=== PATIENT | female | born 1990 | race Caucasian/White ===

== ENCOUNTER 2018-02-16 15:49 | Emergency (ER) | payer SELFPAY ==
[2018-02-16 15:50] VITALS: BP 141/90; PULSE 102; RESP 16; TEMP 36.7; O2SAT 98; BMI 25.0
--- NOTE | 2018-02-16 16:49 | ED.DCSUM_ITS ---
- ER Visit Summary Date of Service: 02/16/18 Chief Complaint: Chest pain History of Present Illness: The patient is a 27 F with no primary care physician. She reports that she has pain lower left chest that began 5 days ago. Is a sharp pain that is worsened by movement of her torso, touching, or touching it. Senna 10 hours and 7-10 currently. She taken NSAIDs and Tylenol without relief. She does have a family history of DVT. No personal history of DVT. No recent travel. She is not on control pills. She denies any ankle swelling or calf pain. Physical Examination: Vitals: Stable. Afebrile. General: Well-nourished and well-developed. Head: Normocephalic atraumatic. Neck: Supple, no lymphadenopathy. No JVD. Nontender. Cardiovascular: Regular rate and rhythm. No murmurs. Respiratory: No respiratory distress. Clear to auscultation bilaterally. Moderate tenderness palpation over the lower chest on the left that does reproduce her pain. Abdominal: Soft, nontender, nondistended, normal bowel sounds. No guarding, rebound, or peritoneal signs. Back: Nontender. Extremities: Nontender, no edema. Skin: Normal color, no rash. Neurologic: Alert and oriented ?3. Cranial nerves II through XII are intact. Normal strength and sensation. Psych: Normal affect. Test Results: Chest x-ray is normal. Emergency Department Course and Treatment: I did discuss the possibility of a PE with the patient. I feel this is very unlikely. Her pain is reproducible. However, her heart rate was 102. She does not want to have labs obtained. I feel it is a reasonable course of action. Treatment Plan: Patient will be discharged with instructions to continue Tylenol and ibuprofen for pain. Follow-up with Dr. Ma in 3-5 days not improving. Return to the emergency department for any worsening symptoms. Disposition: To home in improved and stable condition. Impression: 1. Musculoskeletal chest pain. This note was generated with [employer] dictation software. It may contain incorrect words, spelling, and punctuation that were not noted in review of the chart prior to signing ED Disposition - Plan for ED Patient: Disposition: Home or Assisted Living Chief Complaint: Chest Other Instructions: ED Strain Chest Wall Referrals: Keysha Ma DO [STAFF PHYSICIAN] - 3-5 Days if not improving
== END 2018-02-16 17:08 | disposition home or self-care (01) ==
LOC: ED 16:57
PROVIDERS: Emergency Provider Emergency Medicine
DX: R07.89 Other chest pain (principal); R11.0 Nausea; R06.00 Dyspnea, unspecified; F31.9 Bipolar disorder, unspecified; F41.9 Anxiety disorder, unspecified; Z72.0 Tobacco use; Z79.899 Other long term (current) drug therapy
CPT/HCPCS: 71046; 99282

== ENCOUNTER 2018-07-17 13:31 | Emergency (ER) | payer SELFPAY ==
[2018-07-17 13:32] VITALS: BP 135/86; PULSE 101; RESP 18; TEMP 35.9; O2SAT 100; BMI 25.8
--- NOTE | 2018-07-17 14:15 | ED.VISSUMM ---
- ER Visit Summary Date of Service: 07/17/18 Chief Complaint: Sinus symptoms, ear pain History of Present Illness: The patient is a 27 F who is otherwise healthy presents with symptoms of sinus infection. Patient states she has had the symptoms for the past 3 days. She states initially started with some mild nasal drainage and facial fullness. Over the past 2 days, it is worsened. She had more pain in her ears, left greater than right. She denies any fevers or chills. She has had a scant nonproductive cough. She has tried Mucinex with little improvement. She does smoke. Physical Examination: Exam is relatively unremarkable. Left TM is erythematous with distortion of landmarks. Right TM has no erythema but there is bulging. No mastoid tenderness bilaterally. Turbinates are congested but there is no purulent drainage. Oropharynx is widely patent. Heart is regular rate and rhythm. Lungs are clear without wheezes or rhonchi. Test Results: [] Emergency Department Course and Treatment: Clinically, the patient's symptoms do seem consistent most with a URI, but she does have evidence of an acute otitis. I am going to treat her with amoxicillin. I do not suspect a dangerous process. She is not meningitic. I do feel that she is safe for outpatient therapy. She was counseled on concerning symptoms and reasons to return. Treatment Plan: [] Disposition: Discharge Impression: 1. Viral URI 2. Left otitis media This note was generated with [employer] dictation software. It may contain incorrect words, spelling, and punctuation that were not noted in review of the chart prior to signing ED Disposition - Plan for ED Patient: Instructions: ED Upper Resp Infec Abx Tx Prescriptions: Amoxicillin 500 mg PO TID #30 tab Referrals: Care Physician,No Primary [Primary Care Provider] -
== END 2018-07-17 14:39 | disposition home or self-care (01) ==
LOC: ED 14:24
PROVIDERS: Emergency Provider Emergency Medicine
DX: J06.9 Acute upper respiratory infection, unspecified (principal); H66.92 Otitis media, unspecified, left ear; F17.200 Nicotine dependence, unspecified, uncomplicated; F31.9 Bipolar disorder, unspecified; Z79.899 Other long term (current) drug therapy
CPT/HCPCS: 99282

== ENCOUNTER 2020-05-26 02:40 | Emergency (ER) | payer SELFPAY ==
--- NOTE | 2020-05-26 02:41 | ED.VIS.GEN ---
History of Present Illness Chief Complaint: Bite Informant: Patient Onset: Today Context: Sudden Onset Timing: Continuous Current Severity: Moderate Maximum Severity: Moderate Narrative: The patient is a 29-year-old female is right-hand dominant the presents to the emergency department cat bite on her right hand. Patient states she had a stray cat that she was going to take the [employer]. It had got under her porch and was wet. She states she went under to try to reach for it. The cat bit her hand. This happened less than an hour prior to arrival. Her tetanus is up-to-date. She is otherwise been in her normal state of health. She denies other injury. Prior similar symptoms: No Recent Illness/Hospitalization: No Past Medical History - Allergies and Home Meds Allergies/Adverse Reactions: Allergies cyclobenzaprine HCl [From Flexeril] Allergy (Verified 05/26/20 02:40) Swelling tramadol Allergy (Verified 05/26/20 02:40) Swelling Primary Care Physician: Care Physician,No Primary [Primary Care Provider] - Prior records reviewed: Yes Past Medical History: None Surgical History: no surgical history Smoking Status: Current every day smoker Review of Systems General: Denies: Chills, Fever, Sweats Eyes: Denies: Visual changes - bilaterally, Diplopia ENT: Denies: Rhinorrhea, Sore throat Cardiovascular: Denies: Chest pain, Palpitations Respiratory: Denies: Dyspnea, Cough, Dyspnea on exertion Gastrointestinal: Denies: Abdominal pain, Nausea, Vomiting, Diarrhea, Melena, Hematochezia Genitourinary: Denies: Dysuria, Hematuria, Frequency Musculoskeletal: Denies: Back pain, Extremity Pain Skin: Denies: Rash, Wounds Neurological: Denies: Headache, Weakness, Numbness Physical Exam Inital Vital Signs reviewed: Yes General: Well nourished, Well developed, No Acute Distress Head: Normocephalic, Atraumatic Eyes: Perrl, EOMI ENT: Moist mucous membranes, No rhinorrhea Neck: Supple, Nontender Cardiovascular: Regular rate, Regular rhythm, No murmurs Respiratory: No distress, CTA bilaterally, Chest nontender Abdomen: Soft, Nontender, Nondistended, Normal bowel sounds Back: Nontender, Normal Inspection Extremities: No edema, Tenderness - Patient does have a 1 cm vertically oriented laceration on the palmar aspect of the third distal phalanges. There is a small puncture on the dorsum. There is minimal active bleeding. Her cap refill is less than 2 seconds. Skin: Normal color, No rash Neurological: Alert, Oriented x3, Cranial nerves II-XII grossly intact, Normal Strength, Normal Sensation Psychological: Normal affect, Normal Mood Diagnostic/Tx/Re-eval - Medical Decision Making Patient presents with cat bite. This does involve the hand. I do not feel this would benefit from primary closure especially given the significant risk of infection. The patient's wounds were irrigated, cleansed, and dressed. She is given a short course of analgesics and antibiotics. She is comfortable with this plan of care and will be discharged home. Impression 1. Cat bite right hand ED Disposition - Plan for ED Patient: Instructions: ED Cat Bite Prescriptions: Amox/Clavulanate Tablet [Augmentin Tablet] 875 mg PO Q12H #14 tab Prescription Printed Hydrocodone Bitart/Apap 5-325 [[place] 5MG-325MG] 1 tab PO Q6H PRN PRN 3 Days #8 tab PRN Reason: Pain Prescription Printed Referrals: Care Physician,No Primary [Primary Care Provider] - 2 Days for wound check
[2020-05-26 02:42] VITALS: BP 127/89; PULSE 106; RESP 17; TEMP 36; O2SAT 99; BMI 26.4
[2020-05-26] MEDS: HYDROcodone Bitartrate/Apap 5/325 Tablet PO (02:49)
[2020-05-26] MEDS: Amox/Clavulanate 875 MG Tablet PO (02:49)
== END 2020-05-26 03:08 | disposition home or self-care (01) ==
LOC: ED 03:03
PROVIDERS: Emergency Provider Emergency Medicine
DX: S61.252A Open bite of right middle finger without damage to nail, initial encounter (principal); S61.232A Puncture wound without foreign body of right middle finger without damage to nail, initial encounter; W55.01XA Bitten by cat, initial encounter; Y93.9 Activity, unspecified; Y92.9 Unspecified place or not applicable; Y99.9 Unspecified external cause status; F17.200 Nicotine dependence, unspecified, uncomplicated; Z79.899 Other long term (current) drug therapy
CPT/HCPCS: 99283

== ENCOUNTER 2020-06-26 15:21 | Emergency (ER) | payer SELFPAY ==
[2020-06-26 15:22] VITALS: BP 167/110; PULSE 75; RESP 16; TEMP 35.6; O2SAT 100; BMI 25.8
[2020-06-26 16:09] VITALS: BP 167/110; PULSE 75; RESP 16; TEMP 35.6; O2SAT 100
--- NOTE | 2020-06-26 16:15 | ED.VIS.GEN ---
History of Present Illness Chief Complaint: Dental Informant: Patient Narrative: Patient is a 29-year-old female with a past medical history of depression anxiety who presents to the emergency department for dental pain. She states that she has had issues with this for over a year. She feels like occasionally gets pus out of the left lower molar region. She has not seen a dentist as she does not have insurance. She has been taking Tylenol and ibuprofen for this. She feels like it has been getting worse recently. She denies any issues with throat pain or swallowing. No chest pain or shortness of breath. No fevers or chills. She does have hot and cold sensitivities to the teeth when eating. She does have a history of her wisdom teeth being taken out. She denies any chance of being . Past Medical History - Allergies and Home Meds Allergies/Adverse Reactions: Allergies cyclobenzaprine HCl [From Flexeril] Allergy (Verified 06/26/20 15:24) Swelling tramadol Allergy (Verified 06/26/20 15:24) Swelling Primary Care Physician: Care Physician,No Primary [Primary Care Provider] - Prior records reviewed: Yes Past Medical History: - - Anxiety/depression Surgical History: no surgical history Smoking Status: Current every day smoker Review of Systems All systems negative except as indicated General: Denies: Chills, Fever, Sweats Eyes: Denies: Visual changes - bilaterally ENT: Reports: - - Dental pain. Denies: Bilateral ear pain, Rhinorrhea, Sore throat Cardiovascular: Denies: Chest pain, Palpitations Respiratory: Denies: Dyspnea, Cough, Dyspnea on exertion Gastrointestinal: Denies: Abdominal pain, Nausea, Vomiting Musculoskeletal: Denies: Back pain, Extremity Pain Skin: Denies: Rash, Wounds Neurological: Denies: Headache, Weakness, Numbness Allergy: Denies: Swelling of the mouth, Swelling of the tongue Physical Exam Vital Signs/Narrative: Vital Signs Temp Pulse Resp BP Pulse Ox 06/26/20 16:09 96.1 F L 75 16 167/110 H 100 06/26/20 15:22 96.1 F L 75 16 167/110 H 100 Inital Vital Signs reviewed: Yes General: Well nourished, Well developed, No Acute Distress Head: Normocephalic, Atraumatic Eyes: Perrl, EOMI ENT: Moist mucous membranes, No rhinorrhea, - - Multiple dental caries present. No appreciable dental abscess. Uvula midline. No lesions present. Neck: Supple, Nontender, No lymphadenopathy Cardiovascular: Regular rate, Regular rhythm, No murmurs Respiratory: No distress, CTA bilaterally, Chest nontender Abdomen: Nondistended Extremities: Nontender, No edema Skin: Normal color, No rash Neurological: Alert, Oriented x3, Cranial nerves II-XII grossly intact Psychological: Normal affect, Normal Mood Diagnostic/Tx/Re-eval - Medical Decision Making Patient presents to the emergency department for dental pain. Is been a chronic issue for her. I do suspect a dental infection with the hot and cold sensitivities with pain. We will write a prescription for penicillin. She will be given a dose of IM Toradol here in the ED. I did give her a list of dentists in the area for which she can follow-up with. She needs to have close follow-up with them. Warning signs and symptoms which to return to the ED are reviewed including significant facial swelling, issues with swallowing or fever/chills. She understands and is agreeable with plan. She is discharged home in stable condition. All questions were answered. ED Disposition - Plan for ED Patient: Disposition: Home or Assisted Living Diagnosis: Pain, dental Instructions: Dental Abscess Referrals: Care Physician,No Primary [Primary Care Provider] - Additional Instructions: Please follow-up with dentist from provided list as soon as possible.
[2020-06-26] MEDS: Penicillin Vk 250 MG Tablet 500 MG PO (16:29)
[2020-06-26] MEDS: Ketorolac 30 MG/ML Syringe IM (16:29)
[2020-06-26 16:30] VITALS: BP 129/66; PULSE 84; RESP 16; O2SAT 97
== END 2020-06-26 16:51 | disposition home or self-care (01) ==
LOC: ED 16:29
PROVIDERS: Emergency Provider Emergency Medicine
DX: K08.89 Other specified disorders of teeth and supporting structures (principal); G89.29 Other chronic pain; K02.9 Dental caries, unspecified; F32.9 Major depressive disorder, single episode, unspecified; F41.9 Anxiety disorder, unspecified; F17.200 Nicotine dependence, unspecified, uncomplicated; Z79.899 Other long term (current) drug therapy
CPT/HCPCS: 96372; 99283

== ENCOUNTER 2021-03-01 09:07 | Emergency (ER) | payer MEDICARE, SELFPAY ==
[2021-03-01 09:08] VITALS: BP 152/110; PULSE 94; RESP 16; TEMP 36.6; O2SAT 100; BMI 25.8
--- NOTE | 2021-03-01 09:21 | RAD_ITS ---
STUDY: X-RAY CHEST REASON FOR EXAM: Female, 30 years old. Cough and shortness of breath. Body aches. Altered taste and smell. TECHNIQUE: Single AP portable view of the chest. COMPARISON: Comparison is made with prior study dated 02/16/2018. FINDINGS: Hyperinflation. The lungs are clear. There is no demonstrated pleural abnormality. Normal size heart. Normal mediastinum and humera. Normal visualized pulmonary arteries. Normal visualized aortic arch and descending thoracic aorta. Normal visualized thoracic spine. Normal visualized ribs, clavicles, and shoulders. There is no demonstrated abnormality of the visualized soft tissue structures of the upper abdomen. RAD/Chest 1 View (Portable) IMPRESSION: Hyperinflation. The lungs are clear. Electronically Signed: Luciano Phipps MD at 10:32 EDT , Service support ,
--- NOTE | 2021-03-01 09:21 | EX.ED.DYSGE1 ---
HPI History of Present Illness Chief Complaint: Shortness of Breath Informant: patient Narrative Narrative: 30-year-old female presents with concerns for COVID-19. Patient states that for the past 4 days she has had body aches, sweats, subjective fever, headache, runny nose, shortness of breath, cough, diarrhea. She states that she is also lost her sense of taste and smell. She also reports having a funny smell in her nose. She states it is same symptoms that she had about a month ago when she was ill for about 2-1/2 weeks. At that time she had a negative Covid test and she had about a week where she was back to herself. She is not vaccinated against Covid. [facility] Medical History (Reviewed 03/01/21 @ :[address] Vipul Perry DO) Anxiety Depression Home Medications venlafaxine 37.5 mg PO DAILY 05/26/20 [History Last Taken Unknown] lorazepam 0.5 mg PO PRN PRN 03/01/21 [History Last Taken Unknown] Allergy/AdvReac Type Severity Reaction Status Date / Time cyclobenzaprine HCl Allergy Swelling Verified 03/01/21 09:10 [From Flexeril] tramadol Allergy Swelling Verified 03/01/21 09:10 Social History (Updated 03/01/21 @ :[address] Vipul Perry DO) Smoking Status: Current every day smoker tobacco type: cigarettes substance use type: does not use ROS ROS ED Constitutional Constitutional ED: Reports subjective and sweats; Denies chills or weight loss Eyes Eyes: Denies change in vision or diplopia ENT ENT ED: Reports rhinorrhea and sore throat; Denies ear pain Cardiovascular Cardiovascular: Denies chest pain, orthopnea, palpitations or racing heartbeat Respiratory/Chest Respiratory/Chest: Reports cough, dyspnea and dyspnea on exertion; Denies orthopnea Gastrointestinal Gastrointestinal: Reports diarrhea; Denies abdominal pain, nausea or vomiting Genitourinary Genitourinary ED: Denies dysuria, hematuria or urinary frequency Musculoskeletal Musculoskeletal: Reports myalgias; Denies arthralgias Integumentary Denies abscess or rash Neurologic Neurologic: Reports headache(s); Denies weakness Psychiatric Psychiatric: Denies anxiety, depression, suicidal ideation or suicidal thoughts Endocrine Endocrinology: Denies polydipsia, polyphagia or polyuria Allergic/Immunologic Allergic/Immunologic ED: Denies mouth swelling, tongue swelling or urticaria EXAM Physical Exam Const Vital Signs: 03/01/21 09:08 03/01/21 09:13 Temperature 97.8 F Temperature Source Temporal Pulse Rate 94 Respiratory Rate 16 Respiratory Effort Normal Non-Labored Respiratory Depth Normal Respiratory Pattern Normal Blood Pressure 152/110 H Blood Pressure Mean 124 Pulse Ox 100 Oxygen Delivery Method Room Air Positive well nourished and well developed General Appearance ED: well developed HEENT Reports normocephalic, head/scalp atraumatic and moist mucous membranes Eyes PERRL and EOMs intact bilaterally Neck no lymphadenopathy, supple and no JVD Resp normal respiratory effort and clear to auscultation bilaterally Cardio regular rate, regular rhythm and no murmurs GI normal to inspection, nondistended, normoactive bowel sounds and non-tender Palpation: soft Back/Spine no CVA tenderness and normal ROM Extremity normal to inspection General Extremety ED: Negative for edema General Extremity: Negative for edema Neuro oriented x3 and CN's II-XII intact bilaterally Sensorium / Orientation: alert Motor Exam: strength 5/5 throughout Psych mental status grossly normal Mood & Affect: Negative for depressed or tearful Skin no rashes or lesions noted and no wounds MDM MDM MDM Narrative Medical decision making narrative: My interpretation of the chest x-ray is no acute process. Patient's rapid Covid was positive. She received a dose of ibuprofen here for headache. Patient will be discharged home instructions to quarantine. She is to notify close contacts return if worsening or concerns Radiography Diagnostic Testing: Radiology Impression Chest X-Ray 03/01/21 09:21 IMPRESSION: Hyperinflation. The lungs are clear. Electronically Signed: Luciano Phipps MD at 10:32 EDT , Service support , Discharge Plan Triage Chief Complaint: Shortness of Breath ED Provider: Vipul Perry Dx/Rx/DC Orders Clinical Impression: COVID-19, Headache, Acute dyspnea Instructions: Coronavirus Disease 2019 (COVID-19): Caring for Yourself or Others Prescriptions: No Action venlafaxine 37.5 MG capsule 37.5 mg PO DAILY RF: 0 lorazepam 0.5 mg tablet 0.5 mg PO PRN PRN (Reason: Anxiety) RF: 0 Primary Care Provider: Care Physician,No Primary Referrals: Christel Marie MD [STAFF PHYSICIAN] - As Needed Care Physician,No Primary [Primary Care Provider] - Disposition Disposition: Home, Self Care
[2021-03-01 11:41] VITALS: BP 148/97; PULSE 94; RESP 18; O2SAT 94
== END 2021-03-01 11:42 | disposition home or self-care (01) ==
PROVIDERS: Emergency Provider Emergency Medicine
DX: U07.1 COVID-19 (principal); F32.9 Major depressive disorder, single episode, unspecified; F41.9 Anxiety disorder, unspecified; F17.210 Nicotine dependence, cigarettes, uncomplicated; Z79.899 Other long term (current) drug therapy
CPT/HCPCS: 71045; 87426; 99282

== ENCOUNTER 2021-03-17 23:58 | Emergency (ER) | payer SELFPAY ==
[2021-03-17 23:59] VITALS: BP 135/91; PULSE 113; RESP 15; TEMP 36.8; O2SAT 97; BMI 27.6
--- NOTE | 2021-03-18 00:23 | EX.ED.VIS.UR ---
HPI HPI - URI History of Present Illness Chief Complaint: Sore Throat Detail of Chief Complaint: Sore throat that started yesterday Informant: patient Narrative Narrative: Patient presents to the emergency department with a sore throat that started yesterday. Patient states that she has some white exudates on her tonsils yesterday but they seem to have resolved. Patient also tells me she had Covid recently and came out of quarantine on March 11. Patient's had subjective fever at home. She has had some chills and some sweats. She denies any cough currently. She denies chest pain. She denies any exposures to anybody with strep throat. ROS ROS ED Constitutional Constitutional ED: Reports systems reviewed and no addt'l complaints, except as documented, chills and sweats; Denies body ache(s) or change in weight Eyes Eyes: Denies acute decrease in peripheral vision, change in vision, double vision or loss of vision ENT ENT ED: Reports none and sore throat; Denies ear pain, lip swelling, loss taste/smell, neck pain or otalgia Cardiovascular Cardiovascular: Reports none; Denies abdominal pain, chest pain with activity, leg edema, lightheadedness, palpitations, rapid heart rate or syncope Respiratory/Chest Respiratory/Chest: Reports none; Denies change in mental status, dry cough, dyspnea, hemoptysis, shortness of breath at rest or shortness of breath with exertion Gastrointestinal Gastrointestinal: Reports none; Denies abdominal pain, change in stool character, diarrhea, hematemesis, hematochezia, melena, rectal bleeding or vomiting Genitourinary Genitourinary ED: Reports none; Denies abdominal discomfort, anuria, dysuria, genital pain or polyuria Musculoskeletal Musculoskeletal: Reports none; Denies arthralgias, back pain, difficulty walking, extremity pain, muscle weakness or myalgias Integumentary Reports none; Denies abscess or rash Neurologic Neurologic: Reports none; Denies abnormal gait, confusion, focal weakness, frequent falls, headache(s), loss of vision, numbness, paresthesias, radicular pain, vertigo or weakness Psychiatric Psychiatric: Reports systems reviewed and no addt'l complaints, except as documented and none; Denies behavioral changes, confusion, difficulty concentrating, hallucinations, suicidal ideation, tactile hallucinations or visual hallucinations Endocrine Endocrinology: Denies none, cold intolerance, excessive sweating, fatigue or heat intolerance Hematologic/Lymphatic Hematologic/Lymphatic: Reports none; Denies anemia, easy bleeding or easy bruising Allergic/Immunologic Allergic/Immunologic ED: Denies as per HPI, none, lip swelling, mouth swelling, throat swelling, tongue swelling or hives PFSH PFS Medical History Anxiety Depression Home Medications venlafaxine 37.5 mg PO DAILY 05/26/20 [History Last Taken Unknown] lorazepam 0.5 mg PO PRN PRN 03/01/21 [History Last Taken Unknown] amoxicillin 500 mg PO TID #30 tab 03/18/21 [Rx Last Taken Unknown] Allergy/AdvReac Type Severity Reaction Status Date / Time cyclobenzaprine HCl Allergy Swelling Verified 03/17/21 23:59 [From Flexeril] tramadol Allergy Swelling Verified 03/17/21 23:59 Social History (Updated 03/01/21 @ 09:[address] Vipul Perry DO) Smoking Status: Current every day smoker tobacco type: cigarettes substance use type: does not use EXAM Physical Exam Const Vital Signs: 03/17/21 23:59 Temperature 98.3 F Temperature Source Temporal Pulse Rate 113 H Respiratory Rate 15 Blood Pressure 135/91 H Blood Pressure Mean 105 Pulse Ox 97 Oxygen Delivery Method Room Air Positive well nourished and well developed General Appearance ED: well developed and NAD HEENT Reports TM's clear and moist mucous membranes HEENT Narrative: Mild pharyngeal erythema. No significant tonsillar exudates noted. Uvula midline. No trismus. normocephalic and atraumatic; Negative for trauma or tenderness Tympanic Membrane ED: Yes TM's clear Eyes PERRL and EOMs intact bilaterally General Eye ED: Negative for pale conjunctiva or scleral icterus Neck no lymphadenopathy, supple and no JVD General: Negative for tenderness Chest Wall inspection of chest normal and palpation of chest normal Chest: Negative for tenderness Resp normal respiratory effort and clear to auscultation bilaterally Effort and Inspection: Negative for respiratory distress or pain with movement Auscultation: Negative for rhonchi, wheezes or diminished lung sounds Cardio regular rate, regular rhythm, S1 normal heart sound, S2 normal heart sound and no murmurs Peripheral Pulses: pulses 2+ throughout GI normal to inspection, nondistended, normoactive bowel sounds, soft to palpation, non-tender, non-distended and no masses Back/Spine no CVA tenderness and no thoracic nor lumbar tenderness Extremity normal to inspection General Extremety ED: Negative for edema General Extremity: Negative for edema Neuro oriented x3, CN's II-XII intact bilaterally, no sensory deficits noted and gait normal Sensorium / Orientation: awake, alert, oriented to person, oriented to place and oriented to time Motor Exam: strength 5/5 throughout and strength abnormal Psych mental status grossly normal Skin no rashes or lesions noted and no wounds MDM MDM MDM Narrative Medical decision making narrative: Patient started on amoxicillin for strep pharyngitis. Patient advised to follow-up with primary care physician 3 to 5 days. She is to return if worsening pain difficulty swallowing, or conditions worsen anyway. Lab Data Attestation: I reviewed the patient's lab results. Discharge Plan Triage Chief Complaint: Sore Throat ED Provider: Kelle Ahn Dx/Rx/DC Orders Clinical Impression: Acute streptococcal pharyngitis Instructions: ED Pharyngitis, Strep (Confirmed) Prescriptions: New amoxicillin 500 MG tablet 500 mg PO TID Qty: 30 RF: 0 No Action venlafaxine 37.5 MG capsule 37.5 mg PO DAILY RF: 0 lorazepam 0.5 mg tablet 0.5 mg PO PRN PRN (Reason: Anxiety) RF: 0 Primary Care Provider: Care Physician,No Primary Referrals: Care Physician,No Primary [Primary Care Provider] - Disposition Disposition: Home, Self Care
[2021-03-18] MEDS: Ibuprofen 600 MG Tablet PO (00:45)
[2021-03-18] MEDS: AMOXICILLIN 500 MG CAPSULE PO (01:39)
== END 2021-03-18 01:40 | disposition home or self-care (01) ==
PROVIDERS: Emergency Provider Emergency Medicine
DX: J02.0 Streptococcal pharyngitis (principal); F17.210 Nicotine dependence, cigarettes, uncomplicated; Z79.899 Other long term (current) drug therapy; Z86.16 Personal history of COVID-19
CPT/HCPCS: 87880; 99283

== ENCOUNTER 2021-09-16 18:46 | Emergency (ER) | payer MEDICAID, SELFPAY ==
[2021-09-16 18:47] VITALS: BP 140/100; PULSE 103; RESP 18; TEMP 35.8; O2SAT 98; BMI 27.3
--- NOTE | 2021-09-16 18:55 | RAD_ITS ---
STUDY: X-RAY - LEFT HAND, ATTENTION FIFTH FINGER REASON FOR EXAM: Female, 30 years old. eft pinky got stepped on Monday, complaint of increased pain, swelling has gone down. TECHNIQUE: 3 view(s) of the finger were obtained. COMPARISON: Left hand x-ray dated OCTOBER 20, 2015 FINDINGS: An acute horizontal fracture is present in the proximal shaft of the distal phalanx of the fifth digit, without displacement. The surrounding soft tissues are mildly swollen. Normal metacarpal head. Normal metacarpophalangeal joint. Normal proximal phalanx. Normal middle phalanx. Normal proximal interphalangeal joint. Normal distal interphalangeal joint. RAD/Finger(s) Min 2 Views IMPRESSION: 1. Acute nondisplaced horizontal fracture in the proximal shaft of the distal phalanges of the fifth digit Electronically Signed: Rasta Miller MD at 19:59 EDT ,
--- NOTE | 2021-09-16 18:57 | EX.ED.UPPERE ---
HPI History of Present Illness Chief Complaint: Upper Extremity Injury Detail of Chief Complaint: Injury to left small finger that occurred 5 days ago Informant: patient Narrative Narrative: Patient presents to the emergency department with injury to the left small finger that occurred 5 days ago. Patient states that she was wrestling with her little brother who is 15 years old but he is quite heavy and over 6 feet tall. He accidentally stepped on her finger. Patient states immediately it became swollen and discolored. She continues to have pain. Patient is right-hand dominant. [facility] Medical History Anxiety Depression Home Medications venlafaxine 37.5 mg PO DAILY 05/26/20 [History Last Taken Unknown] lorazepam 0.5 mg PO PRN PRN 03/01/21 [History Last Taken Unknown] hydrocodone-acetaminophen 1 tab PO Q4H PRN PRN 2 Days #10 tablet 09/16/21 [Rx Last Taken Unknown] Allergy/AdvReac Type Severity Reaction Status Date / Time cyclobenzaprine HCl Allergy Swelling Verified 09/16/21 18:56 [From Flexeril] tramadol Allergy Swelling Verified 09/16/21 18:56 Social History (Updated 03/01/21 @ 09:[address] Vipul Perry, ) Smoking Status: Current every day smoker tobacco type: cigarettes substance use type: does not use ROS ROS ED Constitutional Constitutional ED: Reports systems reviewed and no addt'l complaints, except as documented; Denies body ache(s), change in weight or chills Eyes Eyes: Denies acute decrease in peripheral vision, change in vision, double vision or loss of vision ENT ENT ED: Reports none; Denies ear pain, lip swelling, loss taste/smell, neck pain, otalgia or sore throat Cardiovascular Cardiovascular: Reports none; Denies abdominal pain, chest pain with activity, leg edema, lightheadedness, palpitations, rapid heart rate or syncope Respiratory/Chest Respiratory/Chest: Reports none; Denies change in mental status, dry cough, dyspnea, hemoptysis, shortness of breath at rest or shortness of breath with exertion Gastrointestinal Gastrointestinal: Reports none; Denies abdominal pain, change in stool character, diarrhea, hematemesis, hematochezia, melena, rectal bleeding or vomiting Genitourinary Genitourinary ED: Reports none; Denies abdominal discomfort, anuria, dysuria, genital pain or polyuria Musculoskeletal Musculoskeletal: Reports none and other Details: Left small finger swelling and pain ; Denies arthralgias, back pain, difficulty walking, extremity pain, muscle weakness or myalgias Integumentary Reports none; Denies abscess or rash Neurologic Neurologic: Reports none; Denies abnormal gait, confusion, focal weakness, frequent falls, headache(s), loss of vision, numbness, paresthesias, radicular pain, vertigo or weakness Psychiatric Psychiatric: Reports systems reviewed and no addt'l complaints, except as documented and none; Denies behavioral changes, confusion, difficulty concentrating, hallucinations, suicidal ideation, tactile hallucinations or visual hallucinations Endocrine Endocrinology: Denies none, cold intolerance, excessive sweating, fatigue or heat intolerance Hematologic/Lymphatic Hematologic/Lymphatic: Reports none; Denies anemia, easy bleeding or easy bruising Allergic/Immunologic Allergic/Immunologic ED: Denies as per HPI, none, lip swelling, mouth swelling, throat swelling, tongue swelling or hives EXAM Physical Exam Const Vital Signs: 09/16/21 18:47 Temperature 96.5 F L Temperature Source Temporal Pulse Rate 103 H Respiratory Rate 18 Blood Pressure 140/100 H Blood Pressure Mean 113 Pulse Ox 98 Oxygen Delivery Method Room Air Positive well nourished and well developed General Appearance ED: well developed and NAD HEENT Reports TM's clear and moist mucous membranes normocephalic and atraumatic; Negative for trauma or tenderness Tympanic Membrane ED: Yes TM's clear Eyes PERRL and EOMs intact bilaterally General Eye ED: Negative for pale conjunctiva or scleral icterus Neck no lymphadenopathy, supple and no JVD General: Negative for tenderness Chest Wall inspection of chest normal and palpation of chest normal Chest: Negative for tenderness Resp normal respiratory effort and clear to auscultation bilaterally Effort and Inspection: Negative for respiratory distress or pain with movement Auscultation: Negative for rhonchi, wheezes or diminished lung sounds Cardio regular rate, regular rhythm, S1 normal heart sound, S2 normal heart sound and no murmurs Peripheral Pulses: pulses 2+ throughout GI normal to inspection, nondistended, normoactive bowel sounds, soft to palpation, non-tender, non-distended and no masses Back/Spine no CVA tenderness and no thoracic nor lumbar tenderness Extremity Extremity Narrative: Evaluation of the left small finger does reveal soft tissue swelling over the distal phalanx. No subungual hematoma. Neurovascular intact. No obvious deformity. General Extremety ED: Negative for edema General Extremity: Negative for edema Neuro oriented x3, CN's II-XII intact bilaterally, no sensory deficits noted and gait normal Sensorium / Orientation: awake, alert, oriented to person, oriented to place and oriented to time Motor Exam: strength 5/5 throughout and strength abnormal Psych mental status grossly normal Skin no rashes or lesions noted and no wounds MDM MDM MDM Narrative Medical decision making narrative: Patient has a fracture of the distal phalanx mid phalanx transverse in orientation. Patient will be given an aluminum splint. She is given a prescription for [place] for pain. She will be referred to orthopedics for follow-up. Radiography Diagnostic Testing: Three-view x-rays of the left small finger obtained showed a fracture of the distal phalanx on my interpretation. Official report from radiology pending. Discharge Plan Triage Chief Complaint: Upper Extremity Injury ED Provider: Kelle Ahn Dx/Rx/DC Orders Clinical Impression: Finger fracture Instructions: ED Fracture, Finger, Closed Prescriptions: New hydrocodone-acetaminophen [hydrocodone-acetaminophen] 1 TABLET tablet 1 tab PO Q4H PRN PRN (Reason: Pain) 2 Days Qty: 10 RF: 0 No Action venlafaxine 37.5 MG capsule 37.5 mg PO DAILY RF: 0 lorazepam 0.5 mg tablet 0.5 mg PO PRN PRN (Reason: Anxiety) RF: 0 Primary Care Provider: Care Physician,No Primary Referrals: Carlitos Santo DO [STAFF PHYSICIAN] - 5-7 Days Care Physician,No Primary [Primary Care Provider] - Disposition Disposition: Home, Self Care
[2021-09-16 19:38] VITALS: BP 136/90; PULSE 78; RESP 18
== END 2021-09-16 19:38 | disposition home or self-care (01) ==
PROVIDERS: Emergency Provider Emergency Medicine; Visit Provider Emergency Medicine
DX: S62.667A Nondisplaced fracture of distal phalanx of left little finger, initial encounter for closed fracture (principal); W50.0XXA Accidental hit or strike by another person, initial encounter; Y93.72 Activity, wrestling; F32.A Depression, unspecified; F41.9 Anxiety disorder, unspecified; F17.210 Nicotine dependence, cigarettes, uncomplicated; Z79.899 Other long term (current) drug therapy
CPT/HCPCS: 73140; 99283

== ENCOUNTER 2023-03-06 17:13 | Inpatient (IN) | payer MEDICAID, SELFPAY ==
[2023-03-06 17:14] VITALS: BP 123/90; PULSE 87; RESP 16; TEMP 36.3; O2SAT 99; BMI 32.5
--- NOTE | 2023-03-06 18:48 | EX.ED.SAOD ---
HPI History of Present Illness Chief Complaint: Substance Abuse Onset/Context/Timing Onset: Days (2) Context: Gradual Onset Timing: Continuous Worsened by: Nothing Relieved by: Nothing Associated Symptoms Associated Symptoms: Positive for no; Negative for vomiting*, diarrhea*, fever*, rash*, seizure, tremor, palpatations or change in mental status Narrative Narrative: Patient presents requesting detox from alcohol. Patient states her last drink was 2 days ago. Patient states she drinks anything with higher alcohol content. Patient states she drinks 4 [place]'s, wine, and liquor. Patient denies any history of prior detox. Patient admits to some nausea and sweats. Patient denies any fevers. Patient denies any vomiting or diarrhea. Patient denies any tremors or seizures. Patient denies any chance of . Patient denies any suicidal homicidal ideations. [facility] Medical History Alcohol abuse Anxiety Depression Home Medications lorazepam 0.5 mg tablet 0.5 mg PO PRN PRN Anxiety 03/01/21 [History Last Taken Unknown] ibuprofen 800 mg tablet 800 mg PO Q8H 09/23/21 [History Last Taken Unknown] lorazepam 1 mg tablet 1 mg PO DAILY 03/06/23 [History Last Taken Unknown] oxcarbazepine 150 mg tablet 150 mg PO BID 03/06/23 [History Last Taken Unknown] venlafaxine 150 mg capsule,extended release 24 hr 150 mg PO BID 03/06/23 [History Last Taken Unknown] Allergy/AdvReac Type Severity Reaction Status Date / Time cyclobenzaprine HCl Allergy Swelling Verified 09/23/21 10:04 [From Flexeril] tramadol Allergy Swelling Verified 09/23/21 10:04 Family History Father Hypertension Diabetes Mother Diabetes Hypertension Heart disease Uncle Diabetes Other Cancer no surgical history Social History Smoking Status: Current every day smoker tobacco type: cigarettes substance use type: does not use ROS ROS ED Constitutional Constitutional ED: Reports sweats; Denies chills or fever(s) Eyes Eyes: Denies blurry vision or change in vision ENT ENT ED: Denies rhinorrhea or sore throat Cardiovascular Cardiovascular: Denies chest pain or palpitations Respiratory/Chest Respiratory/Chest: Denies cough or dyspnea Gastrointestinal Gastrointestinal: Reports nausea; Denies vomiting Genitourinary Genitourinary ED: Denies dysuria or hematuria Musculoskeletal Musculoskeletal: Denies back pain or neck pain Integumentary Denies abscess or rash Neurologic Neurologic: Denies headache(s) or weakness Allergic/Immunologic Allergic/Immunologic ED: Denies mouth swelling or urticaria EXAM Physical Exam Const Vital Signs: 03/06/23 17:14 Temperature 97.4 F L Temperature Source Temporal Pulse Rate 87 Respiratory Rate 16 Blood Pressure 123/90 H Blood Pressure Mean 101 Pulse Ox 99 Oxygen Delivery Method Room Air Positive well nourished and well developed General Appearance ED: well developed HEENT Reports moist mucous membranes Neck supple and no JVD Resp normal respiratory effort and clear to auscultation bilaterally Cardio regular rate, regular rhythm and no murmurs GI normal to inspection, nondistended, normoactive bowel sounds and non-tender Palpation: soft Extremity normal to inspection General Extremety ED: Negative for edema or tenderness General Extremity: Negative for edema Neuro oriented x3, CN's II-XII intact bilaterally and no sensory deficits noted Sensorium / Orientation: alert Motor Exam: strength 5/5 throughout Psych mental status grossly normal and thought process normal Skin no rashes or lesions noted MDM MDM MDM Narrative Medical decision making narrative: Differential diagnosis includes alcohol withdrawal and alcohol dependence. Medical screening labs will be obtained. CBC will be obtained to assess for leukocytosis and anemia. Comprehensive metabolic profile will be obtained to assess for hepatic function, renal function, and electrolyte abnormality. Serum alcohol level will be obtained to assess for alcohol intoxication. Urine tox screen will be obtained to assess for substance abuse. Serum hCG will be obtained to assess for . Case will be discussed with the hospitalist for admission. Management Discussion w/another healthcare provider: Hospitalist Discharge Plan Triage Chief Complaint: Substance Abuse ED Provider: Juan Watson Dx/Rx/DC Orders Clinical Impression: Alcohol dependence Prescriptions: No Action ibuprofen 800 mg tablet 800 mg PO Q8H lorazepam 0.5 mg tablet 0.5 mg PO PRN PRN (Reason: Anxiety) Patient Comments: TAKE 1 TABLET BY MOUTH TWICE DAILY NEEDED oxcarbazepine 150 mg tablet 150 mg PO BID venlafaxine 150 mg capsule,extended release 24hr 150 mg PO BID lorazepam 1 mg tablet 1 mg PO DAILY Patient Comments: Take 1 Tablet By Oral Route 1 times per day as needed. This is a 30 day supply Primary Care Provider: Care Physician,No Primary Referrals: Care Physician,No Primary [Primary Care Provider] - Disposition Disposition: Acute Care Hospital [facility]
[2023-03-06 19:18] LABS: Absolute Lymphocyte Count 2.33 X10^3/uL (0.83-4.51); Absolute Neutrophil Count 6.7 X10^3/uL (2.0-7.7); Basophil# 0.02 X10^3/uL; Basophil% 0.2 % (0-1); Eosinophil# 0.08 X10^3/uL; Eosinophils% 0.8 % (0-5); Hematocrit 38.4 % (37-47); Hemoglobin 12.9 g/dL (12.0-15.0); Lymphocyte # 2.33 X10^3/ul (0.83-4.51); Lymphocyte % 24.1 % (19-41); Mean Corp Hgb Conc 33.6 g/dL (32-36); Mean Corpuscular Hgb 30.6 pg (27.0-32.0); Mean Corpuscular Volume 91.2 fL (81-99); Mean Platelet Vol. 10.2 fl (6.2-12.0); Monocyte# 0.52 X10^3/uL; Monocyte% 5.4 % (0-10); NRBC Flagged by Analyzer 0 % (0-5); Neutrophil # 6.67 X10^3/uL (2.7-7.7); Neutrophil % 69.2 % (47-70); Platelet Count 348 K/mm3 (150-450); RBC Distribution Width CV 13.5 % (11.6-14.6); RBC Distribution Width SD 45.6 fl (35.1-43.9); Red Blood Count 4.21 M/mm3 (4.2-5.4); White Blood Count 9.7 K/mm3 (4.4-11.0)
[2023-03-06 19:30] LABS: Internal QC Validated? YES +Cl - CLEAR BKGD; Pregnancy, Serum, hCG Quali. NEGATIVE Negative
[2023-03-06 19:31] LABS: Amphetamine Urine VISTA POSITIVE (<1000 ng/mL); Barbiturate Urine VISTA NEGATIVE (< 200 ng/mL); Benzodiazepine Urine VISTA NEGATIVE (< 200 ng/mL); Cocaine Urine VISTA NEGATIVE (< 300 ng/mL); Ecstacy Urine VISTA NEGATIVE (< 500 ng/mL); Methadone Urine VISTA NEGATIVE (< 300 ng/mL); PCP Urine VISTA NEGATIVE (< 25 ng/mL); THC Urine VISTA NEGATIVE (< 50 ng/mL); Vista UDS pH Range 6
[2023-03-06 19:32] LABS: Alcohol, Blood (Medical)-Serum < 3.0 mg/dL
[2023-03-06 19:36] LABS: AST(SGOT) 20 U/L (15-37); Alanine Aminotransfer ALT/SGPT 28 U/L (13-56); Albumin, Serum 3.6 g/dL (3.2-5.0); Alkaline Phosphatase 91 U/L (45-117); Anion Gap 6 (5-15); BUN 12 mg/dL (7-18); BUN/Creat Ratio 19.9 RATIO (10-20); Calcium,Total 8.5 mg/dL (8.5-10.1); Chloride 102 mmol/L (98-107); EST Glomerular Filtration Rate 123 mL/min (>60); Est Glom Filt Rate - Afr Amer 148 mL/min (>60); Estimated Creatinine Clearance 135.79 ml/min; Globulin 3.6 g/dL (2.2-4.2); Glucose 104 mg/dL (74-106); Potassium 3.5 mmol/L (3.5-5.1); Protein, Total 7.2 g/dL (6.4-8.2); Sodium Level 135 mmol/L (136-145)
--- NOTE | 2023-03-06 19:37 | HP.PCM.HOS_ITS ---
HPI - General General Date of Admission: 03/06/23 Date of Service: 03/06/23 Chief Complaint: Alcohol detox HPI Narrative MELIA HERRING, is a 32 F who presented to the emergency department at [facility] on 03/06/2023 requesting detox from alcohol. She is currently undergoing counseling at [facility] and staying at [facility] and was quite diaphoretic with her most recent drink being 2 days ago. They recommended she come to the emergency department for detox. She states she is having some mild anxiety, diaphoresis, and mild tremor. She denies any nausea vomiting or diarrhea. Her alcohol intake is variable but states she will drink several drinks a day starting in the morning and ending in the evening. She has been drinking a long time but in the last 5 to 6 months her intake has increased considerably. Vital signs on presentation showed temperature of 97.4, blood pressure was 123/90, heart rate 87, respiratory rate 16 and oxygen saturation was 99% on room air. CBC was unremarkable. Her chemistry panel showed mild hyponatremia but was otherwise unremarkable. Her urine toxicology screen was positive for amph etamines however I SPECT this is cross-reactivity due to her outpatient venlafaxine use. Alcohol level was less than 3. PFSH Medical History (Updated 03/06/23 @ 19:[address] Katerine Whalen DO) Alcohol abuse Anxiety Depression Tobacco abuse Home Medications lorazepam 0.5 mg tablet 0.5 mg PO PRN PRN Anxiety 03/01/21 [History Last Taken Unknown] ibuprofen 800 mg tablet 800 mg PO Q8H 09/23/21 [History Last Taken Unknown] lorazepam 1 mg tablet 1 mg PO DAILY 03/06/23 [History Last Taken Unknown] oxcarbazepine 150 mg tablet 150 mg PO BID 03/06/23 [History Last Taken Unknown] venlafaxine 150 mg capsule,extended release 24 hr 150 mg PO BID 03/06/23 [History Last Taken Unknown] Allergy/AdvReac Type Severity Reaction Status Date / Time cyclobenzaprine HCl Allergy Swelling Verified 09/23/21 10:04 [From Flexeril] tramadol Allergy Swelling Verified 09/23/21 10:04 Family History Father Hypertension Diabetes Mother Diabetes Hypertension Heart disease Uncle Diabetes Other Cancer Surgical History no surgical history no surgical history Social History (Updated 03/06/23 @ 19:[address] Katerine Whalen, DO) household members: other details: [facility] [place] Smoking Status: Current every day smoker tobacco type: cigarettes and e- cigarettes alcohol intake: current alcohol intake frequency: 3 or more drinks per day Alcohol type: beer, wine and hard liquor substance use type: does not use ROS Constitutional Constitutional: Reports other Details: Diaphoresis ; Denies anorexia, change in weight, chills, fatigue, fever(s), malaise, night sweats or weakness Eyes Eyes: Denies blurry vision, change in eye color, change in vision, discharge from eye(s), double vision, erythema, eye pain, loss of vision or other ENT HEENT: Denies abnormal hearing, dysphagia, ear pain, epistaxis, headache(s), hearing loss, nasal congestion, nasal discharge, post nasal drip, sinus pressure, sore throat or other Cardiovascular Cardiovascular: Denies chest pain, claudication, dyspnea on exertion, edema, lightheadedness, orthopnea, palpitations, paroxysmal nocturnal dyspnea, rapid heart rate, syncope or other Respiratory/Chest Respiratory/Chest: Denies cough, dyspnea, excessive phlegm production, hemoptysis, productive cough, shortness of breath at rest, shortness of breath with exertion, wheezing or other Gastrointestinal Gastrointestinal: Denies abdominal pain, coffee ground emesis, constipation, diarrhea, dyspepsia, hematemesis, hematochezia, loose stools, melena, nausea, vomiting or other Genitourinary Genitourinary: Denies burning urination, difficulty urinating, dysuria, hematuria, nocturia, urinary frequency, urinary hesitancy, urinary incontinence, urinary urgency or other Musculoskeletal Musculoskeletal: Denies arthralgias, back pain, joint pain, joint stiffness, joint swelling, myalgias, neck pain or other Neurologic Neurologic: Reports tremor(s); Denies abnormal gait, abnormal speech, confusion, disequilibrium, dizziness, focal weakness, headache(s), numbness, paresthesias, seizure-like activity, seizures, syncope, tingling or other Psychiatric Psychiatric: Reports anxiety and depression; Denies homicidal ideation, suicidal ideation or other Endocrine Endocrinology: Denies change in body appearance, cold intolerance, excessive sweating, heat intolerance, polydipsia, polyuria or other Hematologic/Lymphatic Hematologic/Lymphatic: Denies anemia, easy bleeding, easy bruising, lymphadenopathy or other Allergic/Immunologic Allergic/Immunologic: Denies rhinitis, hives, eczemia, asthma or other Vital Signs Vital Signs Vital Signs: 03/06/23 17:14 Temperature 97.4 F L Temperature Source Temporal Pulse Rate 87 Respiratory Rate 16 Blood Pressure 123/90 H Blood Pressure Mean 101 Pulse Ox 99 Oxygen Delivery Method Room Air Weight Weight: 97.069 kg Body Mass Index (BMI) 32.5 Physical Exam Const alert, oriented x3, no apparent distress, healthy appearing and well nourished Constitutional Narrative: Obese, lower middle-aged, white female, sitting up in bed talking on her phone, appears comfortable and nontoxic General Appearance: cooperative HEENT normocephalic, head/scalp atraumatic, hearing grossly normal bilaterally and moist oral mucous membranes HEENT Narrative: Dentition is good, Mallampati is 2, no thrush Resp normal respiratory effort, no retractions, no use of accessory muscles and clear to auscultation bilaterally Auscultation: Negative for rales, rhonchi or wheezes Cardio regular rate, regular rhythm, S1 normal heart sound, S2 normal heart sound, no murmurs, no rub, no gallops and no clicks GI normal to inspection, nondistended, normoactive bowel sounds, soft to palpation and non-tender Extremity no clubbing, cyanosis or edema Extremity Narrative: Pulses are 2+ Neuro oriented x3, moves all extremities and no focal motor deficits Speech: speech normal Psych affect normal Psych Narrative: Very pleasant, eye contact is good, patient interacts normally Results Lab / Micro Data Attestation: I reviewed the patient's lab results. 03/06/23 19:10 03/06/23 19:10 Labs: Laboratory Results - last 24 hr 03/06/23 19:10: WBC 9.7, RBC 4.21, Hgb 12.9, Hct 38.4, MCV 91.2, MCH 30.6, MCHC 33.6, RDW Std Deviation 45.6 H, RDW Coeff of [place] 13.5, Plt Count 348, MPV 10.2, Immature Gran % (Auto) 0.300, Neut % (Auto) 69.2, Lymph % (Auto) 24.1, [place] % (Auto) 5.4, Eos % (Auto) 0.8, Baso % (Auto) 0.2, Absolute Neuts (auto) 6.7, Absolute Lymphs (auto) 2.33, Nucleated RBC % 0, Sodium 135 L, Potassium 3.5, Chloride 102, Carbon Dioxide 27.0, Anion Gap 6, BUN 12, Creatinine 0.60, Estim Creat Clear Calc 135.79, Est GFR (MDRD) Af Amer 148, Est GFR (MDRD) Non-Af 123, BUN/Creatinine Ratio 19.9, Glucose 104, Calcium 8.5, Total Bilirubin 0.70, AST 20, ALT 28, Alkaline Phosphatase 91, Total Protein 7.2, Albumin 3.6, Globulin 3.6, Albumin/Globulin Ratio 1.0, Serum , Qual NEGATIVE, Ethyl Alcohol < 3.0 03/06/23 19:13: Urine Opiates Screen NEGATIVE, Urine Methadone Screen NEGATIVE, Ur Barbiturates Screen NEGATIVE, Ur Phencyclidine Scrn NEGATIVE, Ur Amphetamines Screen POSITIVE H, MDMA (Ecstasy) Screen NEGATIVE, U Benzodiazepines Scrn NEGATIVE, Urine Cocaine Screen NEGATIVE, U Cannabinoids Screen NEGATIVE, Ur Drug Screen Comment Assessment & Plan Assessment/Plan (1) Alcohol dependence: (2) Alcohol withdrawal: PLAN: Plan Alcohol dependence with acute alcohol withdrawal -Patient with diaphoresis, tremor, mild anxiety on presentation -Start phenobarbital taper -Start thiamine and folate -Supportive medications for symptom management -180 consultation for assistance with discharge planning--> outpatient follow-up is preferred per patient -Overall anticipate short hospitalization as her last drink was 48 hours ago and she is having mild symptoms at this time. I suspect her hospitalization will be 24 to 48 hours Tobacco abuse -Patient smokes 1/2 to 1 pack of cigarettes daily -Nicotine patch -Recommend cessation Anxiety/depression -Continue home lorazepam -Continue home venlafaxine -Continue home oxcarbazepine DVT prophylaxis -Low risk -Rec an early and frequent ambulation CODE STATUS Full code Charges/Coding Visit Charges Inpatient E&M: 35708 Init Hosp L1
--- NOTE | 2023-03-06 19:50 | CM.ED ---
Social Work SW introduced self and role to patient. Pt reports she wishes to detox from alcohol with last drink being two days ago. Pt reports feeling withdrawal symptoms. Pt reports she has never been through detox before. Pt is residing at [facility] currently. Pt is interested in outpatient services once detox is complete. Pt denies any other SW needs at this time. Treatment navigator notified of new Ramp patient. Grisel Elmore FINANCIAL PLANNING ADVISER, HR BUSINESS PARTNER CONSULTANT
[2023-03-06 22:04] VITALS: BP 122/69; PULSE 72; RESP 16; TEMP 36.7; O2SAT 99; BMI 32.5
[2023-03-06] MEDS: 0.9% Saline Lock 10 ML Syringe IV (23:16)
[2023-03-06] MEDS: Phenobarbital 32.4 MG Tablet 64.8 MG PO (23:16)
[2023-03-06] MEDS: OXcarbazepine 300 MG Tablet 150 MG PO (23:17)
[2023-03-06] MEDS: Venlafaxine XR 150 MG Capsule PO (23:18)
[2023-03-06] MEDS: Ibuprofen 400 MG Tablet 800 MG PO (23:18)
[2023-03-07 03:25] VITALS: BP 126/84; PULSE 70; RESP 16; TEMP 36.2; O2SAT 97
[2023-03-07] MEDS: Phenobarbital 32.4 MG Tablet 64.8 MG PO ×6 (03:27→22:22)
[2023-03-07] MEDS: Ondansetron 8 MG Tablet PO ×2 (03:30→20:42)
[2023-03-07 06:37] VITALS: BP 136/90; PULSE 72; RESP 18; TEMP 36.3; O2SAT 97
[2023-03-07] MEDS: Ibuprofen 400 MG Tablet 800 MG PO ×3 (06:40→22:22)
--- NOTE | 2023-03-07 07:44 | PCM.PN.HOSP ---
Reason for Visit Reason for Visit: Diagnoses Alcohol dependence, uncomplicated (03/06/23) Alcohol use, unspecified with withdrawal, unspecified (03/06/23) Subjective Subjective Still feels slightly sweaty feels much better at the medication, though it is slightly sedated. Denied any other complaints today Objective Data Objective Data Vital Signs: Vital Signs Temp Pulse Resp BP Pulse Ox O2 Del Method 97.4 F L 72 18 136/90 H 97 Room Air 03/07/23 06:37 03/07/23 06:37 03/07/23 06:37 03/07/23 06:37 03/07/23 06:37 03/07/23 06:37 Oxygen Delivery Method Room Air Weight: 97.069 kg Body Mass Index (BMI) 32.5 Intake & Output: Intake and Output for Last 24 Hours 03/05/23 03/06/23 03/07/23 23:59 23:59 23:59 Intake Total 300 / 300 300 / 300 Balance 300 / 300 300 / 300 Lab / Micro Data 03/06/23 19:10 03/06/23 19:10 Labs: Laboratory Results - last 24 hr 03/06/23 19:10: WBC 9.7, RBC 4.21, Hgb 12.9, Hct 38.4, MCV 91.2, MCH 30.6, MCHC 33.6, RDW Std Deviation 45.6 H, RDW Coeff of [place] 13.5, Plt Count 348, MPV 10.2, Immature Gran % (Auto) 0.300, Neut % (Auto) 69.2, Lymph % (Auto) 24.1, [place] % (Auto) 5.4, Eos % (Auto) 0.8, Baso % (Auto) 0.2, Absolute Neuts (auto) 6.7, Absolute Lymphs (auto) 2.33, Nucleated RBC % 0, Sodium 135 L, Potassium 3.5, Chloride 102, Carbon Dioxide 27.0, Anion Gap 6, BUN 12, Creatinine 0.60, Estim Creat Clear Calc 135.79, Est GFR (MDRD) Af Amer 148, Est GFR (MDRD) Non-Af 123, BUN/Creatinine Ratio 19.9, Glucose 104, Calcium 8.5, Total Bilirubin 0.70, AST 20, ALT 28, Alkaline Phosphatase 91, Total Protein 7.2, Albumin 3.6, Globulin 3.6, Albumin/Globulin Ratio 1.0, Serum , Qual NEGATIVE, Ethyl Alcohol < 3.0 03/06/23 19:13: Urine Opiates Screen NEGATIVE, Urine Methadone Screen NEGATIVE, Ur Barbiturates Screen NEGATIVE, Ur Phencyclidine Scrn NEGATIVE, Ur Amphetamines Screen POSITIVE H, MDMA (Ecstasy) Screen NEGATIVE, U Benzodiazepines Scrn NEGATIVE, Urine Cocaine Screen NEGATIVE, U Cannabinoids Screen NEGATIVE, Ur Drug Screen Comment Physical Exam Narrative General: Alert, oriented, no apparent distress HEENT: Atraumatic, normocephalic Eyes: extraocular movements grossly intact Neck: Supple Respiratory: normal respiratory effort Cardiovascular: no edema appreciated GI: nondistended Extremities: Moving all extremities Neuro: No overt focal neurological deficits Psych: Cooperative Assessment & Plan Assessment/Plan (1) Alcohol dependence: (2) Alcohol withdrawal: PLAN: Plan Alcohol dependence with acute alcohol withdrawal -Patient with diaphoresis, tremor, mild anxiety on presentation -Start phenobarbital taper -Start thiamine and folate -Supportive medications for symptom management -180 consultation for assistance with discharge planning--> outpatient follow-up is preferred per patient -Overall anticipate short hospitalization as her last drink was 48 hours ago and she is having mild symptoms at this time. I suspect her hospitalization will be 24 to 48 hours -03/07: Patient receives Ativan on outpatient basis. She gets 15 pills/month, given her alcohol history ideally would advise against Ativan use in the long-term but this is ultimately deferred to her prescribing physician Tobacco abuse -Patient smokes 1/2 to 1 pack of cigarettes daily -Nicotine patch -Recommend cessation Anxiety/depression -Continue home lorazepam as as needed as she feels 15 a month and does appear she is actively filling this -Continue home venlafaxine -Continue home oxcarbazepine DVT prophylaxis -Low risk -Rec an early and frequent ambulation CODE STATUS Full code Charges/Coding Visit Charges Inpatient E&M: 78382 Subs Hosp L1
[2023-03-07 10:34] VITALS: BP 131/76; PULSE 87; RESP 16; TEMP 36.4; O2SAT 97
[2023-03-07 10:40] VITALS: BP 131/76; PULSE 87; RESP 18; TEMP 36.4; O2SAT 97
[2023-03-07] MEDS: Thiamine Hydrochloride 100 MG Tablet PO (10:44)
[2023-03-07] MEDS: Folic Acid 1 MG Tablet PO (10:44)
[2023-03-07] MEDS: Venlafaxine XR 150 MG Capsule PO ×2 (10:44→22:22)
[2023-03-07 10:46] LABS: Anion Gap 6 (5-15); BUN 9 mg/dL (7-18); BUN/Creat Ratio 13.6 RATIO (10-20); Calcium,Total 7.9 mg/dL (8.5-10.1); Chloride 106 mmol/L (98-107); Creatinine, Serum 0.66 mg/dL (0.55-1.02); EST Glomerular Filtration Rate 110 mL/min (>60); Est Glom Filt Rate - Afr Amer 133 mL/min (>60); Estimated Creatinine Clearance 123.44 ml/min; Glucose 113 mg/dL (74-106); Sodium Level 137 mmol/L (136-145)
[2023-03-07] MEDS: OXcarbazepine 150 MG Tablet PO ×2 (11:23→22:24)
[2023-03-07] MEDS: Influenza Virus Vac Quad 23-24 60 MCG/0.5 ML SYRINGE IM (11:26)
--- NOTE | 2023-03-07 12:34 | ADDICTION ---
This script writer met with PT to conduct ASAM, MSE, AUDIT, DUDIT assessments and to plan for d/c. PT A+Ox4 and participated actively. All assessments completed, and d/c plan placed in PT's chart. PT plans to f/u with individual counselor at [facility] for outpatient treatment services. PT did not indicate a need for transportation post d/c from [facility].
--- NOTE | 2023-03-07 14:39 | CHAPLAIN ---
Type of Pastoral Visit ___ Initial Visit ___ Follow-up Visit ___ On-call Visit ___ General Patient Visit ___ Spiritual Assessment ___ Family Conference ___ Bereavement ___ Rapid Response ___ Code Blue ___ Other (describe below) Pastoral Care Referral From ___ Patient ___ Family ___ Nurse ___ Physician ___ Manager Chemical ___ Rn Gyn ___ Other (describe below) Sacrament/Intervention ___ Active listening ___ Anointing ___ Church ___ Bereavement ___ Communion ___ Deborah exploration ___ ___ Life review ___ Prayer ___ Reconciliation ___ Sacrament of Sick ___ Supportive presence ___ Wedding ___ Other (describe below) Pastoral Comments patient was resting but easily awoke to her name; pt rubs her eyes and says that she is doing okay; pt offered support and is 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
[2023-03-07] MEDS: LORazepam 0.5 MG Tablet PO (15:29)
[2023-03-07 15:43] VITALS: BP 133/96; PULSE 70; RESP 18; TEMP 36.6; O2SAT 98
[2023-03-07 20:37] VITALS: BP 121/69; PULSE 75; RESP 18; TEMP 36.4; O2SAT 99
[2023-03-07] MEDS: hydrOXYzine PAM 25 MG Capsule 50 MG PO (20:42)
[2023-03-08] MEDS: Phenobarbital 32.4 MG Tablet 64.8 MG PO ×4 (03:17→18:02)
[2023-03-08] MEDS: 0.9% Saline Lock 10 ML Syringe IV (03:19)
[2023-03-08 03:22] VITALS: BP 122/87; PULSE 71; RESP 18; TEMP 36.4; O2SAT 98
[2023-03-08 06:09] VITALS: BP 107/62; PULSE 68; RESP 18; TEMP 36.4; O2SAT 99
[2023-03-08] MEDS: Ibuprofen 400 MG Tablet 800 MG PO ×2 (06:12→22:32)
--- NOTE | 2023-03-08 09:24 | PN.HOSP_ITS ---
Reason for Visit Reason for Visit: Diagnoses Alcohol dependence, uncomplicated (03/06/23) Alcohol use, unspecified with withdrawal, unspecified (03/06/23) Subjective Subjective Still feeling tired, overall symptoms significantly improving, discussed DC home later today versus tomorrow given patient just now stepping down on phenobarb taper feel it is reasonable to spread out further DC tomorrow Objective Data Objective Data Vital Signs: Vital Signs Temp Pulse Resp BP Pulse Ox O2 Del Method 97.6 F L 68 18 107/62 99 Room Air 03/08/23 06:09 03/08/23 06:09 03/08/23 06:09 03/08/23 06:09 03/08/23 06:09 03/08/23 06:09 Oxygen Delivery Method Room Air Weight: 97.069 kg Body Mass Index (BMI) 32.5 Intake & Output: Intake and Output for Last 24 Hours 03/06/23 03/07/23 03/08/23 23:59 23:59 23:59 Intake Total 300 / 300 1420 / 1420 200 / 200 Balance 300 / 300 1420 / 1420 200 / 200 Lab / Micro Data 03/06/23 19:10 03/07/23 10:25 Labs: Laboratory Results - last 24 hr 03/07/23 10:25: Sodium 137, Potassium 4.0, Chloride 106, Carbon Dioxide 25.0, Anion Gap 6, BUN 9, Creatinine 0.66, Estim Creat Clear Calc 123.44, Est GFR (MDRD) Af Amer 133, Est GFR (MDRD) Non-Af 110, BUN/Creatinine Ratio 13.6, Glucose 113 H, Calcium 7.9 L Physical Exam Narrative General: Alert, oriented, no apparent distress HEENT: Atraumatic, normocephalic Eyes: extraocular movements grossly intact Neck: Supple Respiratory: normal respiratory effort Cardiovascular: no edema appreciated GI: nondistended Extremities: Moving all extremities Neuro: No overt focal neurological deficits Psych: Cooperative Assessment & Plan Assessment/Plan (1) Alcohol dependence: (2) Alcohol withdrawal: PLAN: Plan Alcohol dependence with acute alcohol withdrawal -Patient with diaphoresis, tremor, mild anxiety on presentation -Start phenobarbital taper -Start thiamine and folate -Supportive medications for symptom management -180 consultation for assistance with discharge planning--> outpatient follow-up is preferred per patient -Overall anticipate short hospitalization as her last drink was 48 hours ago and she is having mild symptoms at this time. I suspect her hospitalization will be 24 to 48 hours -03/07: Patient receives Ativan on outpatient basis. She gets 15 pills/month, given her alcohol history ideally would advise against Ativan use in the long- term but this is ultimately deferred to her prescribing physician -03/08: Patient decreased to 64.8, given timing of last drink and significant improvement will change from every 4 to every 6 and if doing well likely DC tomorrow, patient agreeable Tobacco abuse -Patient smokes 1/2 to 1 pack of cigarettes daily -Nicotine patch -Recommend cessation Anxiety/depression -Continue home lorazepam as as needed as she feels 15 a month and does appear she is actively filling this -Continue home venlafaxine -Continue home oxcarbazepine DVT prophylaxis -Low risk -Rec an early and frequent ambulation CODE STATUS Full code Charges/Coding Visit Charges Inpatient E&M: 28356 Subs Hosp L1
--- NOTE | 2023-03-08 09:26 | ADDICTION ---
TW met with Pt to complete Vivitrol assessment, as she discussed this with night nurse. Client scored high on the Vivitrol assessment was recommended to receive Vivitrol upon d/c. TW recommended pt to engage in IOP upon d/c and recommended she discuss with her individual counselor to put in a referral to start IOP. Pt was agreeable.
[2023-03-08 09:28] VITALS: BP 108/56; PULSE 85; RESP 16; TEMP 36.6; O2SAT 97
[2023-03-08] MEDS: Venlafaxine XR 150 MG Capsule PO ×2 (09:33→22:33)
[2023-03-08] MEDS: Thiamine Hydrochloride 100 MG Tablet PO (09:34)
[2023-03-08] MEDS: Folic Acid 1 MG Tablet PO (09:34)
[2023-03-08] MEDS: OXcarbazepine 150 MG Tablet PO ×2 (09:35→22:32)
--- NOTE | 2023-03-08 12:20 | NURSING ---
Documentation charted as Shefali Amaro RN from the time of 03/07 2200-03/08 200 was actually charted by Zoë Connolly LPN. Technical issues with computer charted incorrectly
[2023-03-08 13:28] VITALS: BP 118/66; PULSE 75; RESP 16; TEMP 36.6; O2SAT 97
[2023-03-08 17:55] VITALS: BP 117/70; PULSE 82; RESP 16; TEMP 36.7; O2SAT 97
[2023-03-08 22:28] VITALS: BP 129/64; PULSE 81; RESP 18; TEMP 36.6; O2SAT 96
[2023-03-09] MEDS: Phenobarbital 32.4 MG Tablet 64.8 MG PO ×2 (00:22→06:42)
[2023-03-09 06:38] VITALS: BP 113/68; PULSE 81; RESP 16; TEMP 36.6; O2SAT 98
[2023-03-09] MEDS: Ibuprofen 400 MG Tablet 800 MG PO (06:39)
[2023-03-09] MEDS: 0.9% Saline Lock 10 ML Syringe IV (06:41)
[2023-03-09 09:32] VITALS: BP 108/69; PULSE 80; RESP 16; TEMP 36.7; O2SAT 97
[2023-03-09] MEDS: hydrOXYzine PAM 25 MG Capsule 50 MG PO (09:39)
[2023-03-09] MEDS: Ondansetron 8 MG Tablet PO (09:39)
--- NOTE | 2023-03-09 10:47 | PCM.DC.SUM ---
Providers Date of Admission: 03/06/23 Date of Discharge: 03/09/23 Primary Care Physician: Shahrzad Primary Care Phys Reason For Visit: ETOH DETOX Diagnosis Discharge Diagnosis (1) Alcohol dependence: Status: Acute Code(s): F10.20 - Alcohol dependence, uncomplicated (2) Alcohol withdrawal: Status: Acute Code(s): F10.939 - Alcohol use, unspecified with withdrawal, unspecified Plan Alcohol dependence with acute alcohol withdrawal Tobacco abuse Anxiety/depression Medications at Discharge Home Medications lorazepam 0.5 mg tablet 0.5 mg PO PRN PRN Anxiety 03/01/21 oxcarbazepine 150 mg tablet 150 mg PO BID 03/06/23 venlafaxine 150 mg capsule,extended release 24 hr 150 mg PO BID 03/06/23 ibuprofen 800 mg tablet 800 mg PO Q8H PRN pain 30 days #0 tabs 03/09/23 Hospital Course Summary of Care Provided Minutes Spent on Discharge: 25 Hospital Course: Patient was admitted 03/06 requesting detox from alcohol with her last drink being 2 days prior. Patient was admitted and detox protocol ordered. They completed their detox and were discharged in stable condition. On the day of discharge no new medical complaints voiced, feeling slightly tired after phenobarb again but otherwise doing well and was not lethargic by any means, able to wake up and answer questions appropriately, do not think she needs any further inpatient stay or phenobarbital, also she was deemed appropriate candidate for Vivitrol and this order was placed prior to discharge. Physical Exam Narrative General: Alert, oriented, no apparent distress HEENT: Atraumatic, normocephalic Eyes: extraocular movements grossly intact Neck: Supple Respiratory: normal respiratory effort Cardiovascular: no edema appreciated GI: nondistended Extremities: Moving all extremities Neuro: No overt focal neurological deficits Psych: Cooperative Weight / BMI Weight Weight: 97.069 kg Body Mass Index (BMI) 32.5 ABG / Lab / Microbiology Data 03/06/23 19:10 03/07/23 10:25 D/C Instructions Discharge Diet: No restrictions Meaningful Use Info Meaningful Use Diagnoses (Choose all that apply): None applicable Discharge Plan Admission Admit Date/Time: 03/06/23 19:44 Primary Reason for Your Visit: ETOH detox Attending Provider: Ashli Lyles Primary Care Provider: Care Physician,No Primary Consulting Providers: Katerine Whalen Instructions Patient Instructions: Alcohol Addiction, Addiction Work, Addiction Questionnaire, Addiction: Getting Help, Addiction: Your Treatment Options, Addiction Recovery Counseling Additional Instructions / Restrictions: DISCHARGE INSTRUCTIONS PLEASE READ *Please take this with you to your next doctors appointment* -It is recommended that you do not continue lorazepam and have alternative medication prescribed for you given risk of dependence upon this medication, ultimately this is at the discretion of your outpatient provider - It is strongly advised that you refrain from any substance use. Please call [facility] located at [address] [place] [id number] (ph [phone]) if you are interested in further resources -Please call your primary care provider's office upon discharge to schedule a hospital follow up within 1 week. -If you do not have a primary care physician of list of local primary care physicians can be provided for you upon discharge. Please ask for this list prior to discharge -For any concerning signs or symptoms please call 911 or proceed to the nearest emergency department Discharge Orders/Prescriptions Prescriptions: Continued oxcarbazepine 150 mg tablet 150 mg PO BID venlafaxine 150 mg capsule,extended release 24hr 150 mg PO BID Changed ibuprofen 800 mg tablet 800 mg PO Q8H PRN (Reason: pain) 30 Days Qty: 0 0RF Held lorazepam 0.5 mg tablet 0.5 mg PO PRN PRN (Reason: Anxiety) Hold Instructions: Resume on 03/15/23. Patient Comments: TAKE 1 TABLET BY MOUTH TWICE DAILY NEEDED Discontinued lorazepam 1 mg tablet 1 mg PO DAILY Patient Comments: Take 1 Tablet By Oral Route 1 times per day as needed. This is a 30 day supply Referrals / Follow Up: Care Physician,No Primary [Primary Care Provider] - ( -If you do not have a primary care physician of list of local primary care physicians can be provided for you upon discharge. Please ask for this list prior to discharge ) Disposition Disposition (needs filled in before D/C Order can be placed): Home, Self Care Charges/Coding Visit Charges Inpatient E&M: 96437 Disch Hosp
[2023-03-09] MEDS: Folic Acid 1 MG Tablet PO (11:11)
[2023-03-09] MEDS: Thiamine Hydrochloride 100 MG Tablet PO (11:12)
[2023-03-09] MEDS: Venlafaxine XR 150 MG Capsule PO (11:12)
[2023-03-09] MEDS: OXcarbazepine 150 MG Tablet PO (11:13)
--- NOTE | 2023-03-09 11:57 | PHA.DC.MR.R ---
Pharmacy [place] Med Reconciliation Pharmacy Service has performed discharge medication reconciliation for this patient. The patient has no new medications at time of discharge review. Medications reviewed are from previously reported home medications. The patient's discharge medication list was reviewed for discrepancies and discrepancies were resolved. Medications at Discharge Home Medications lorazepam 0.5 mg tablet 0.5 mg PO PRN PRN Anxiety 03/01/21 oxcarbazepine 150 mg tablet 150 mg PO BID 03/06/23 venlafaxine 150 mg capsule,extended release 24 hr 150 mg PO BID 03/06/23 ibuprofen 800 mg tablet 800 mg PO Q8H PRN pain 30 days #0 tabs 03/09/23
[2023-03-09 13:57] VITALS: BP 126/75; PULSE 78; RESP 16; TEMP 36.7; O2SAT 95
[2023-03-09] MEDS: LORazepam 0.5 MG Tablet PO (14:51)
[2023-03-09] MEDS: Naltrexone Microspheres 380 MG SYRINGE IM (15:04)
== END 2023-03-09 15:51 | disposition home or self-care (01) | DRG 775 ==
LOC: ED 19:03 → MS3 21:37
PROVIDERS: Admitting Provider Internal Medicine; Emergency Provider Emergency Medicine; Visit Provider Internal Medicine
DX: F10.239 Alcohol dependence with withdrawal, unspecified (principal); E66.9 Obesity, unspecified; F32.A Depression, unspecified; F17.210 Nicotine dependence, cigarettes, uncomplicated; F41.9 Anxiety disorder, unspecified; Y90.0 Blood alcohol level of less than 20 mg/100 ml; Z68.32 Body mass index [BMI] 32.0-32.9, adult; Z79.899 Other long term (current) drug therapy
CPT/HCPCS: 36415; 80048; 80053; 80307; 82077; 84703; 85025; 99282; 99406; 90686; A4216

== ENCOUNTER 2023-10-29 12:09 | Emergency (ER) | payer MEDICAID, SELFPAY ==
[2023-10-29 12:10] VITALS: BP 137/100; PULSE 73; RESP 18; TEMP 36.6; O2SAT 98; BMI 35.2
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
[2023-10-29] MEDS: HYDROmorphone 1 MG/ML Syringe IV (12:53)
[2023-10-29] MEDS: 0.9% Normal Saline (1000mL) 1,000 ML 999 ML IV ×2 (12:53→14:19)
[2023-10-29] MEDS: Ondansetron 4 MG/2 ML Vial IV (12:53)
[2023-10-29 12:55] LABS: Absolute Lymphocyte Count 1.28 X10^3/uL (0.83-4.51); Absolute Neutrophil Count 8.3 X10^3/uL (2.0-7.7); Basophil# 0.02 X10^3/uL; Basophil% 0.2 % (0-1); Eosinophil# 0.06 X10^3/uL; Eosinophils% 0.6 % (0-5); Hematocrit 41.6 % (37-47); Hemoglobin 13.9 g/dL (12.0-15.0); Lymphocyte # 1.28 X10^3/ul (0.83-4.51); Lymphocyte % 12.7 % (19-41); Mean Corp Hgb Conc 33.4 g/dL (32-36); Mean Corpuscular Hgb 29.2 pg (27.0-32.0); Mean Corpuscular Volume 87.4 fL (81-99); Mean Platelet Vol. 10.5 fl (6.2-12.0); Monocyte# 0.42 X10^3/uL; Monocyte% 4.2 % (0-10); NRBC Flagged by Analyzer 0 % (0-5); Neutrophil # 8.26 X10^3/uL (2.7-7.7); Neutrophil % 81.9 % (47-70); Platelet Count 441 K/mm3 (150-450); RBC Distribution Width CV 13.1 % (11.6-14.6); RBC Distribution Width SD 41.9 fl (35.1-43.9); Red Blood Count 4.76 M/mm3 (4.2-5.4); White Blood Count 10.1 K/mm3 (4.4-11.0)
[2023-10-29 13:02] LABS: Internal QC Validated? YES +Cl - CLEAR BKGD; Pregnancy, Serum, hCG Quali. NEGATIVE Negative
[2023-10-29 13:10] LABS: AST(SGOT) 16 U/L (15-37); Alanine Aminotransfer ALT/SGPT 24 U/L (13-56); Albumin, Serum 3.4 g/dL (3.2-5.0); Alkaline Phosphatase 111 U/L (45-117); Anion Gap 6 (5-15); BUN 9 mg/dL (7-18); BUN/Creat Ratio 14.4 RATIO (10-20); Bilirubin, Direct 0.12 mg/dL (0.00-0.30); Calcium,Total 8.6 mg/dL (8.5-10.1); Chloride 103 mmol/L (98-107); Creatinine, Serum 0.62 mg/dL (0.55-1.02); EST Glomerular Filtration Rate 117 mL/min (>60); Est Glom Filt Rate - Afr Amer 142 mL/min (>60); Estimated Creatinine Clearance 165.24 ml/min; Globulin 3.8 g/dL (2.2-4.2); Glucose 140 mg/dL (74-106); Lipase 21 U/L (13-75); Potassium 3.5 mmol/L (3.5-5.1); Protein, Total 7.2 g/dL (6.4-8.2); Sodium Level 134 mmol/L (136-145)
--- NOTE | 2023-10-29 13:11 | CT_ITS ---
EXAM: CT ABDOMEN AND PELVIS WITH INTRAVENOUS CONTRAST CLINICAL INDICATION: pain and vomiting EPIGASTRIC TECHNIQUE: Helically acquired images were obtained of the abdomen and pelvis with intravenous contrast. This CT exam was performed using one or more of the following dose reduction techniques: automated exposure control, adjustment of the mA and/or kV according to patient size, and/or use of iterative reconstruction technique. CONTRAST: IV 100mL Isovue-370 RADIATION DOSE: CTDIvol = 15.97 mGy, DLP = 1220.81 mGy-cm COMPARISON: No relevant prior studies available. FINDINGS: LOWER THORAX: Unremarkable. Lung bases are clear. No cardiomegaly. No significant pericardial effusion. ABDOMEN: LIVER: Unremarkable. Homogeneous. No focal mass. GALLBLADDER AND BILE DUCTS: Unremarkable. No calcified gallstones. No gallbladder distention or wall edema. No intra- or extrahepatic biliary ductal dilation. PANCREAS: Unremarkable. No focal cystic or solid mass. SPLEEN: Unremarkable. Normal size without focal cystic or solid mass. ADRENALS: Unremarkable. No nodules. KIDNEYS AND URETERS: Unremarkable. Normal renal size and position. No hydronephrosis. STOMACH AND BOWEL: Moderate amount of abnormal intramural edema of nearly the entire gastric wall. Normal small bowel loops. No suspicious significant abnormality of the colon. PELVIS: APPENDIX: Normal. BLADDER: Unremarkable. REPRODUCTIVE: 3.8 x 2.7 cm right ovarian cyst. No suspicious abnormality of the retroverted uterus. ABDOMEN and PELVIS: INTRAPERITONEAL SPACE: Unremarkable. No ascites or other fluid collection. No free air. BONES/JOINTS: Unremarkable. No suspicious lytic or blastic abnormality. SOFT TISSUES: No discrete abdominal or pelvic wall hernia. VASCULATURE: Unremarkable. Abdominal aorta is non-dilated. LYMPH NODES: Unremarkable. No enlarged lymph nodes. CT/Abdomen/Pelvis W IV Cont ONLY IMPRESSION: 1. Moderate amount of abnormal intramural edema of nearly the entire gastric wall. Etiology is unknown. EGD will be very helpful for further evaluation. 2. 3.8 x 2.7 cm right ovarian cyst. Electronically Signed: Marcus Pérez MD at 13:42 EDT ,
[2023-10-29 14:09] VITALS: BP 151/89; PULSE 58; RESP 18; O2SAT 97
[2023-10-29 14:50] VITALS: BP 178/82; PULSE 78; RESP 16; TEMP 36.6; O2SAT 99
== END 2023-10-29 14:54 | disposition home or self-care (01) ==
PROVIDERS: Emergency Provider Emergency Medicine; Visit Provider Emergency Medicine
DX: K29.70 Gastritis, unspecified, without bleeding (principal); F32.A Depression, unspecified; F41.9 Anxiety disorder, unspecified; F17.210 Nicotine dependence, cigarettes, uncomplicated; F17.290 Nicotine dependence, other tobacco product, uncomplicated; Z79.899 Other long term (current) drug therapy
CPT/HCPCS: 74177; 80048; 80076; 83690; 84703; 85025; 96361; 96374; 96375; 99282; J7030; Q9967; A4216; J2405

== ENCOUNTER 2024-05-22 23:55 | Emergency (ER) | payer MEDICAID, SELFPAY ==
[2024-05-22 23:55] VITALS: BP 146/83; PULSE 105; RESP 18; TEMP 35.7; O2SAT 99; BMI 36.6
--- NOTE | 2024-05-23 00:34 | CT_ITS ---
INDICATION: right flank pain EXAMINATION: CT Abdomen And Pelvis W/O Contrast Injection TECHNIQUE: Helically acquired images were obtained of the abdomen and pelvis with sagittal and coronal reconstructed images. Individualized dose optimization techniques were used for this CT. IV contrast dosage and agent: None. Oral contrast: None. COMPARISON: 10/29/2023 CT. FINDINGS: VESSELS: No abdominal aortic aneurysm. LIVER: No intrahepatic or extrahepatic biliary duct dilation. GALLBLADDER: No calcified stones. No evidence of cholecystitis. PANCREAS: No evidence of a mass. No evidence of pancreatitis. SPLEEN: Normal. ADRENAL GLANDS: Normal. KIDNEYS AND URETERS: No urinary tract stone. No hydronephrosis or hydroureter. Right perinephric stranding. URINARY BLADDER: Unremarkable. BOWEL: No evidence of diverticulosis or diverticulitis. Appendix not identified. No evidence of bowel obstruction. REPRODUCTIVE ORGANS: Unremarkable. PERITONEUM: No intraabdominal free fluid or free air. LYMPH NODES: No pathologically enlarged mesenteric or retroperitoneal lymph nodes. ABDOMINAL WALL: No abdominal or pelvic wall hernia. BONES: No acute abnormality. LOWER CHEST: Visualized lung bases are unremarkable. CT/Abdomen/Pelvis without Cont IMPRESSION: Right perinephric stranding with no hydronephrosis and no urinary tract stone. Findings may represent pyelonephritis or a recently passed ureteral stone. Electronically Signed: Bhupendra Awad DO at 2:35 EST ,
[2024-05-23 00:42] LABS: Mucous, Urine 0 SEEN /hpf (<or=2+)
[2024-05-23] MEDS: 0.9% Normal Saline (1000mL) 1,000 ML 999 ML IV (00:45)
[2024-05-23] MEDS: Ketorolac 15 MG/ML Vial 30 MG IV (00:48)
[2024-05-23 00:49] LABS: Color, Urine Yellow (Yellow); Glucose, Dipstick Normal (Normal); Ketone-Dipstick Negative (Negative); Leukocyte Esterase-Dipstick 500 /ul (Negative); Nitrite-Dipstick Negative (Negative); Occult Blood-Urine 150 /ul (Negative); Protein-Dipstick 100 mg/dl (Negative); Specific Gravity, Urine 1.005 (1.002-1.030); Urine Bilirubin Dipstick Negative (Negative); Urine Clarity Cloudy (Clear); Urine Urobilinogen 1 mg/dl (Normal)
[2024-05-23 00:52] LABS: Absolute Lymphocyte Count 1.33 X10^3/uL (0.83-4.51); Basophil# 0.04 X10^3/uL; Basophil% 0.5 % (0-1); Eosinophil# 0.08 X10^3/uL; Eosinophils% 1.1 % (0-5); Hematocrit 31.7 % (37-47); Hemoglobin 11.2 g/dL (12.0-15.0); Lymphocyte # 1.33 X10^3/ul (0.83-4.51); Lymphocyte % 17.6 % (19-41); Mean Corp Hgb Conc 35.3 g/dL (32-36); Mean Corpuscular Hgb 29.1 pg (27.0-32.0); Mean Corpuscular Volume 82.3 fL (81-99); Mean Platelet Vol. 10.5 fl (6.2-12.0); Monocyte# 1.05 X10^3/uL; Monocyte% 13.9 % (0-10); NRBC Flagged by Analyzer 0 % (0-5); Neutrophil # 5.01 X10^3/uL (2.7-7.7); Neutrophil % 66.2 % (47-70); Platelet Count 297 K/mm3 (150-450); RBC Distribution Width CV 12.7 % (11.6-14.6); RBC Distribution Width SD 38.4 fl (35.1-43.9); Red Blood Count 3.85 M/mm3 (4.2-5.4); White Blood Count 7.6 K/mm3 (4.4-11.0)
[2024-05-23 00:59] LABS: Bacteria 2+ /hpf (None Seen); Internal QC Validated? YES +Cl - CLEAR BKGD; Pregnancy, Urine Negative Negative; Red Blood Cells-Urine 0-5 SEEN /hpf (0-5); Squamous Epithelial Cells - UA 0-5 SEEN /hpf (5-10); White Blood Cells >100 SEEN /hpf (0-5)
[2024-05-23 01:05] LABS: Anion Gap 7 (5-15); BUN 6 mg/dL (7-18); BUN/Creat Ratio 7.3 RATIO (10-20); Calcium,Total 8.8 mg/dL (8.5-10.1); Chloride 94 mmol/L (98-107); Creatinine, Serum 0.82 mg/dL (0.55-1.02); EST Glomerular Filtration Rate 85 mL/min (>60); Est Glom Filt Rate - Afr Amer 103 mL/min (>60); Estimated Creatinine Clearance 126.42 ml/min; Glucose 127 mg/dL (74-106); Potassium 2.8 mmol/L (3.5-5.1); Sodium Level 132 mmol/L (136-145)
[2024-05-23] MEDS: Ceftriaxone 1 GM/50 ML BAG IV (01:19)
[2024-05-23 01:55] VITALS: BP 113/57; PULSE 78; RESP 18; O2SAT 100
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
[2024-05-23 03:04] VITALS: BP 114/62; PULSE 73; RESP 18; TEMP 36.7; O2SAT 98
== END 2024-05-23 03:06 | disposition home or self-care (01) ==
PROVIDERS: Emergency Provider Emergency Medicine; Visit Provider Emergency Medicine
DX: N12 Tubulo-interstitial nephritis, not specified as acute or chronic (principal); R31.9 Hematuria, unspecified; E87.6 Hypokalemia; F32.A Depression, unspecified; F41.9 Anxiety disorder, unspecified; F17.210 Nicotine dependence, cigarettes, uncomplicated; F17.290 Nicotine dependence, other tobacco product, uncomplicated; Z79.899 Other long term (current) drug therapy
CPT/HCPCS: 74176; 80048; 81001; 81025; 85025; 87086; 87088; 96361; 96365; 96366; 96375; 99282